=== PATIENT | male | born 1955 | race Caucasian/White ===

== ENCOUNTER → 2020-06-25 | Outpatient (CLI) | payer MEDICARE, BC ==
[~2020-06-25] MED LIST: AMLO10TA8 PO; ASPI-496 PO; CLOP75TA PO; HYDR25TA6 PO; LOSA1TAB22 PO; LOSA25TA25 PO; MULT-658 PO; PENT400T12 PO; REGADENOSON 0.4 MG/5 ML SYRINGE ONE; SIMV20TA19 PO; TICA90TA PO
== END | disposition home or self-care (01) ==
LOC: CFH 06:40
PROVIDERS: ATTEND Internal Medicine Cardiovascular Disease
DX: I08.8 Other rheumatic multiple valve diseases (principal); I11.9 Hypertensive heart disease without heart failure; I25.10 Atherosclerotic heart disease of native coronary artery without angina pectoris
CPT/HCPCS: 78452; 93017; 93306; 93356; A9502; J2785

== ENCOUNTER → 2020-10-09 | Outpatient (CLI) | payer MEDICARE, BC ==
[~2020-10-09] MED LIST changes: +AMLO-211 PO; -AMLO10TA8 PO; -REGADENOSON 0.4 MG/5 ML SYRINGE ONE
== END | disposition home or self-care (01) ==
LOC: CVU 13:23
PROVIDERS: ATTEND Registered Nurse
DX: I65.23 Occlusion and stenosis of bilateral carotid arteries (principal)
CPT/HCPCS: 93880